=== PATIENT | female | born 1980 | race Caucasian/White ===

== ENCOUNTER 2017-05-21 15:21 | Emergency (ER) | payer BC, OTHER ==
[~2017-05-21] VITALS: Ht 162.6 cm; Wt 150.0 kg
[2017-05-21 15:27] VITALS: Ht 162.6 cm; Wt 150.0 kg
[2017-05-21] MEDS ORDERED: DIPHTH/TET/ACEL PERTUSS (ADULT) 0.5 ML VIAL IM* ONE (17:00)
--- NOTE | 2017-05-21 17:08 | ERD ---
ER Documentation Chief Complaint Chief Complaint Lac on right leg HPI 37-year-old female comes in with laceration to her right lower extremity from a glass frame that was sticking out. Patient states that there was a corner of the frame, the glass did not break. Patient reports laceration occurred just prior to arrival, she is localized, sharp but no difficulty with ambulation. She does not recall her last tetanus shot. ROS All systems reviewed and are negative except as per history of present illness. Medications Home Meds Active Scripts Cephalexin* (Keflex*) 500 Mg Capsule, 500 MG PO QID for 5 Days, CAP Prov:GIOVANNY PETE PA-C 05/21/17 PMhx/Soc Hx Miscellaneous Medical Probl: Yes (Obesity) Hx Alcohol Use: No Hx Substance Use: No Hx Tobacco Use: No Physical Exam Vitals Vital Signs Date Time Temp Pulse Resp B/P Pulse Ox O2 Delivery O2 Flow Rate FiO2 05/21/17 15:27 98.6 91 20 139/84 99 Physical Exam General: Patient is morbidly obese, she is in no acute distress. HEENT: Head is normocephalic, atraumatic. No scleral icterus. Neck: Supple. Nontender. Lungs: Clear to auscultation. Normal air movement. Heart: Regular rate and rhythm. S1 and S2 are normal. No murmurs, gallops, or rubs. Abdomen: Nondistended. Extremities: There is a linear laceration of 4 cm with visible subcutaneous tissue, mild oozing of blood, it is on the right lower extremity. Neurologic: Alert and oriented 3. No focal deficits. Normal speech and gait. Skin: Normal turgor. No rash or lesions. Results 24 hrs Current Medications Medications (Trade) Dose Ordered Sig/Ammy Route PRN Reason Start Time Stop Time Status Last Admin Dose Admin Diphtheria/ Tetanus/Acell Pertussis (Adacel) 0.5 ml ONCE ONCE IM* 05/21/17 17:00 05/21/17 17:01 DC 05/21/17 17:15 Lidocaine (Xylocaine 1% (Mdv) 20 ml) 20 ml ONCE ONCE SC 05/21/17 17:30 05/21/17 17:31 DC Procedures/MDM Laceration Repair by me: Patient was verbally consented Anesthesia: 1% lidocaine locally Location: Right lower extremity Tendon/Joint/Nerves: No injury Foreign body: None detected after copious irrigation and exploration Technique: Simple Interrupted Sutures 14 using 3- 0 Prolene Complexity: For scalp subcutaneous sutures using 4- 0 Vicryl. Post Closure Length: 4cm Patient's bleeding was easily controlled in the department and there is no indication of anemia. No evidence of compartment syndrome, neurologic injury, vascular injury, open joint, tendon laceration, or foreign body. Patient is appropriate for outpatient follow up. 48 hour wound check. Scar minimization instructions given. Departure Diagnosis: Primary Impression: Laceration Condition: Good Patient Instructions: Laceration, All Additional Instructions: Wound check in 2 days. Suture removal in 7-10 days. Return to the ER sooner for any worsening or new symptoms. GIOVANNY PETE PA-C May 21, 2017 17:08
[2017-05-21] MEDS ORDERED: LIDOCAINE 1% (MDV) 20 ML INJ SC ONE (17:30)
[2017-05-21] MEDS ORDERED: CEPH-443 PO (17:59)
== END 2017-05-21 18:47 | disposition home or self-care (01) ==
LOC: FTE 15:21
DX: S81.811A Laceration without foreign body, right lower leg, initial encounter (principal); E66.9 Obesity, unspecified; W25.XXXA Contact with sharp glass, initial encounter; Y92.9 Unspecified place or not applicable; Z23 Encounter for immunization
CPT/HCPCS: 90471; 90715

== ENCOUNTER 2017-05-23 14:02 | Emergency (ER) | payer BC ==
[~2017-05-23] VITALS: Ht 162.6 cm; Wt 159.0 kg
[~2017-05-23 14:02] MED LIST: CEPH-443 PO
[2017-05-23 14:19] VITALS: Ht 162.6 cm; Wt 159.0 kg
--- NOTE | 2017-05-23 19:04 | ERD ---
ER Documentation Chief Complaint Chief Complaint wound check on rt leg lac HPI Is a 37-year-old female presenting to the emergency department for a wound check of a repaired laceration on the right lower extremity that was done 2 days prior to being seen. She denies any fevers or pain. ROS All systems reviewed and are negative except as per history of present illness. Medications Home Meds Active Scripts Cephalexin* (Keflex*) 500 Mg Capsule, 500 MG PO QID for 5 Days, CAP Prov:GIOVANNY PETE PA-C 05/21/17 Allergies Allergies: Coded Allergies: aspirin (Verified Allergy, Intermediate, NOT GOOD TO USE WITH GASTRIC SLEVE, 05/23/17) ibuprofen (Verified Adverse Reaction, Intermediate, NOT GOOD TO USE WITH GASTRIC SLEVE, 05/23/17) PMhx/Soc History of Surgery: Yes (Gastric sleeve) Anesthesia Reaction: No Hx Neurological Disorder: No Hx Respiratory Disorders: No Hx Cardiac Disorders: No Hx Psychiatric Problems: No Hx Miscellaneous Medical Probl: Yes (HX migraine) Hx Alcohol Use: No Hx Substance Use: No Hx Tobacco Use: No Smoking Status: Never smoker Physical Exam Vitals Vital Signs Date Time Temp Pulse Resp B/P Pulse Ox O2 Delivery O2 Flow Rate FiO2 05/23/17 14:19 98.4 82 18 136/93 98 Physical Exam Const: [] Head: Atraumatic Eyes: Normal Conjunctiva ENT: Normal External Ears, Nose and Mouth. Neck: Full range of motion..~ No meningismus. Resp: Clear to auscultation bilaterally Cardio: Regular rate and rhythm, no murmurs Abd: Soft, non tender, non distended. Normal bowel sounds Skin: No petechiae or rashes Back: No midline or flank tenderness Ext: Sutures intact in the right lower extremity Neur: Awake and alert Psych: Normal Mood and Affect Procedures/MDM This is a 37-year-old female presenting to the emergency department to check a repaired laceration that was done 2 days prior when seen. There is no evidence of dehiscence or cellulitis. Patient is stable to be discharged home with instructions to return to the ER for any worsening signs or symptoms or signs of infection Departure Diagnosis: Primary Impression: Encounter for wound re-check Condition: Stable Patient Instructions: Wound Check, Lac F/U (No Infection) Referrals: DOCTOR,NOT ON STAFF (PCP) Additional Instructions: FOLLOW UP WITH YOUR PRIMARY CARE PHYSICIAN TOMORROW.Return to this facility if you are not improving as expected. Return to this facility if you are not improving as expected. SLOANE JOHNSON PA-C May 23, 2017 19:04
== END 2017-05-23 16:41 | disposition home or self-care (01) ==
LOC: FTE 14:02
DX: Z48.01 Encounter for change or removal of surgical wound dressing (principal)
CPT/HCPCS: 99281

== ENCOUNTER 2017-05-31 12:26 | Emergency (ER) | END 2017-05-31 12:51 | disposition home or self-care (01) ==